=== PATIENT | female | born 1945 | race Caucasian/White ===

== ENCOUNTER 2018-08-31 15:32 | Observation (INO) | payer MEDICARE ==
[2018-08-31] MEDS ORDERED: Keppra 500 MG/5 ML*** 1,000 MG in D5w 100ML Mini Bag 100 ML 100 ML IV ONE (15:40)
[2018-08-31] MEDS ORDERED: Sodium Chloride 0.9% 1000 ML 1,000 ML IV SCH ×2 (15:45→18:45)
[2018-08-31] MEDS ORDERED: Zofran 4 MG/2 ML VIAL IV ONE (15:50)
[2018-08-31] MEDS ORDERED: Zofran 4 MG/2 ML VIAL ONE (16:00)
[2018-08-31] MEDS ORDERED: Sodium Chloride 0.9% 1000 ML 1,000 ML ONE (16:00)
[2018-08-31] MEDS ORDERED: Keppra 500 MG/5 ML ONE (16:00)
[2018-08-31] MEDS ORDERED: Sodium Chloride 0.9% 100 ML IVPB 0 ML IV ONE (16:00)
[2018-08-31] MEDS ORDERED: D5w 100ML Mini Bag 100 ML 100 ML IV ONE (16:02)
[2018-08-31 16:03] LABS: Lactic Acid 3.7 (0.4-2.0)
--- NOTE | 2018-08-31 16:04 | ERPHSYRPT ---
- History of Present Illness Time Seen by Provider: 08/31/18 15:45 Source: EMS Physician History: PATIENT WITH A HISTORY OF CVA X 4, FOUND BY NEIGHBOR LYING ON FLOOR ACTIVELY SEIZURES, WITNESSED BY FIRST RESPONDERS, EMS FOUND PATIENT POSTICAL. DENIES HEADACHE, NECK PAIN, BLURRED VISION, FOCAL NUMBNESS, TINGLING OR WEAKNESS IN EXTREMITIES. Timing/Duration: today Severity: mild Character of Deficits: none Deficits: no difficulties Baseline/Normal Cognition: alert oriented x 3 Current Cognition: alert oriented x 3 Baseline Gait: walks w/o assistance Associated Symptoms: other (INITIALLY POSTICAL PER EMS) Allergies/Adverse Reactions: No Known Drug Allergies Allergy (Unverified 08/31/18 17:35) Home Medications: Atorvastatin Calcium [Lipitor] 20 mg PO DAILY 08/31/18 [History] Docusate Sodium 100 mg PO DAILY 08/31/18 [History] Fluoxetine HCl 20 mg [Prozac 20 MG] 20 mg PO DAILY 08/31/18 [History] Insuln Asp Prt/Insulin Aspart [Novolog Mix 70-30 Flexpen Syrn] 10 unit SQ AC [History] Levothyroxine Sodium [Synthroid] 125 mcg PO DAILY 08/31/18 [History] PANTOPRAZOLE 40 mg Tablet [Protonix 40MG Tablet] 40 mg PO BID 08/31/18 [ History] Rivaroxaban [Xarelto] 20 mg PO HS 08/31/18 [History] - Review of Systems Constitutional: No Fever, No Chills Eyes: No Symptoms Ears, Nose, & Throat: No Symptoms Respiratory: No Symptoms, No Cough, No Dyspnea Cardiac: No Symptoms, No Chest Pain, No Edema, No Syncope Abdominal/Gastrointestinal: No Symptoms, No Abdominal Pain, No Nausea, No Vomiting, No Diarrhea Genitourinary Symptoms: No Symptoms, No Dysuria Musculoskeletal: No Symptoms, No Back Pain, No Neck Pain Skin: No Symptoms, No Rash Neurological: Seizure, No Dizziness, No Focal Weakness, No Sensory Changes Psychological: No Symptoms Endocrine: No Symptoms All Other Systems: Reviewed and Negative - Nursing Vital Signs Nursing Vital Signs: Initial Vital Signs Temperature 98.2 F 08/31/18 15:33 Pulse Rate 62 08/31/18 15:33 Respiratory Rate 16 08/31/18 15:33 Blood Pressure 136/70 08/31/18 15:33 O2 Sat by Pulse Oximetry 95 08/31/18 15:33 Pain Scale Pain Intensity 0 - Physical Exam General Appearance: no apparent distress, alert, other (AND APPROPRIATE) Eye Exam: bilateral eye: normal inspection, PERRL, EOMI Neck Exam: normal inspection, other (RIGID CERVICAL COLLAR APPLIED UPON ARRIVAL ) Respiratory: normal breath sounds, accessory muscle use Cardiovascular: regular rate/rhythm, normal heart sounds Gastrointestinal: soft, normal bowel sounds Back Exam: normal inspection, normal range of motion Peripheral Pulses: carotid (R): 2+, carotid (L): 2+, femoral (R): 2+, femoral (L ): 2+, dorsalis-pedis (R): 2+, dorsalis-pedis (L): 2+ Mental Status: alert, oriented x 3 butcher chicken and fish Exam: normal hearing, normal speech, PERRL Coordination/Gait: normal finger to nose, normal cerebellar function Motor/Sensory: no motor deficit, no sensory deficit, negative Babinski's sign DTR: bicep (R): 2+, bicep (L): 2+, tricep (R): 2+, tricep (L): 2+, knee (R): 2+ , knee (L): 2+ Skin Exam: normal color SpO2 Interpretation: normal SpO2: 95 O2 Delivery: Room Air - Course EKG Interpreted by Me: RATE, Sinus Rhythm (RATE 63), NORMAL AXIS - Radiology Exams Chest X-ray Interpretation: Discussed w/ radiologist - CT Exams Head CT Interpretation: Discussed w/radiologist (NONACUTE SENILE BRAINE WITH OLD BILATERAL INFARCTS, NO ACUTE INTRACRANIAL ABNORMALITIES) Cervical Spine CT Interpretation: Discussed w/radiologist (MULTIPLE DEGENERATIVE CHANGES, NEGATIVE FRACTURE OR SUBLUXATION) Ordered Tests: Active Orders 24 hr Category Date Time Status Cervical Collar Application STAT Care 08/31/18 15:50 Active EKG-ER Only STAT Care 08/31/18 15:40 Active IV Insertion STAT Care 08/31/18 15:40 Active Oxygen-ED Only Nasal Cannula 2 lpm Care 08/31/18 15:40 Active CERVICAL SPINE WO CONTRAST [CT] Stat Exams 08/31/18 15:43 Completed CHEST 1 VIEW (PORTABLE) Stat Exams 08/31/18 15:49 Completed HEAD WITHOUT CONTRAST [CT] Stat Exams 08/31/18 15:43 Completed CBC W DIFF Stat Lab 08/31/18 15:49 Completed CK-Creatinine Phosphokinase Stat Lab 08/31/18 15:49 Completed CMP Stat Lab 08/31/18 15:49 Completed CULTURE,URINE Stat Lab 08/31/18 15:49 Received Lactic Acid Stat Lab 08/31/18 15:40 Completed Lactic Acid Stat Lab 08/31/18 18:03 Ordered Manual Differential NC Stat Lab 08/31/18 15:49 Completed PROTIME WITH INR Stat Lab 08/31/18 15:49 Completed TROPONIN Q3H Lab 08/31/18 15:49 Completed TROPONIN Q3H Lab 08/31/18 19:00 Ordered TROPONIN Q3H Lab 08/31/18 22:00 Ordered TROPONIN Q3H Lab 09/01/18 01:00 Ordered TROPONIN Q3H Lab 09/01/18 04:00 Ordered UA W/RFX UR CULTURE Stat Lab 08/31/18 15:49 Completed Urine Triage Profile Stat Lab 08/31/18 15:49 Completed Medication Summary Generic Name Dose Route Start Last Admin Trade Name Freq PRN Reason Stop Dose Admin Sodium Chloride 1,000 mls @ 200 mls/hr 08/31/18 15:45 08/31/18 16:19 Sodium Chloride 0.9% 1000 Ml IV 09/30/18 15:44 200 mls/hr .Q5H TRAVIS Administration Discontinued Medications Generic Name Dose Route Start Last Admin Trade Name Freq PRN Reason Stop Dose Admin Levetiracetam 1,000 mg/ 110 mls @ 400 mls/hr 08/31/18 15:40 08/31/18 16:18 Dextrose IV 08/31/18 15:56 400 mls/hr STAT ONE Administration Sodium Chloride Confirm 08/31/18 16:00 Sodium Chloride 0.9% 100 Ml Ivpb Administered 08/31/18 16:01 Dose 100 mls @ ud IV .STK-MED ONE Dextrose Confirm 08/31/18 16:02 D5w 100ml Mini Bag 100 Ml Administered 08/31/18 16:03 Dose 100 mls @ ud IV .STK-MED ONE Levetiracetam Confirm 08/31/18 16:00 Keppra 500 Mg/5 Ml Administered 08/31/18 16:01 Dose 1,000 mg .ROUTE .STK-MED ONE Ondansetron HCl 4 mg 08/31/18 15:50 08/31/18 16:15 Zofran 4 Mg/2 Ml Vial IV 08/31/18 15:51 4 mg STAT ONE Administration Ondansetron HCl Confirm 08/31/18 16:00 Zofran 4 Mg/2 Ml Vial Administered 08/31/18 16:01 Dose 4 mg .ROUTE .STK-MED ONE Lab/Rad Data: Laboratory Result Diagrams 08/31/18 15:49 08/31/18 15:49 Laboratory Results 08/31/18 08/31/18 08/31/18 Range/Units 15:49 15:49 15:49 WBC (4.0-10.5) K/mm3 RBC (4.1-5.4) M/mm3 Hgb (12.0-16.0) gm/dl Hct (35-47) % MCV (78-100) fl MCH (26-32) pg MCHC (32-36) g/dl RDW (11.5-14.0) % Plt Count (150-450) K/mm3 MPV (6-9.5) fl Absolute Neutrophils (1.4-6.9) Segmented Neutrophils (36.0-66.0) % Band Neutrophils (0.0-2.0) % Lymphocytes (Manual) (24-44) % Monocytes (Manual) (0.0-12.0) % Eosinophils (Manual) (0.00-3.0) % Basophils (Manual) (0.0-1.0) % Anisocytosis PT (9.95-12.35) SECONDS INR (0.8-3.0) Sodium (137-145) mmol/L Potassium (3.5-5.1) mmol/L Chloride (98-107) mmol/L Carbon Dioxide (22-30) mmol/L Anion Gap (5-15) MEQ/L BUN (7-17) mg/dL Creatinine (0.52-1.04) mg/dL Estimated GFR ML/MIN Glucose (74-106) mg/dL Lactic Acid (0.4-2.0) Calcium (8.4-10.2) mg/dL Total Bilirubin (0.2-1.3) mg/dL AST (14-36) U/L ALT (0-35) U/L Alkaline Phosphatase (38-126) U/L Creatine Kinase (30-135) U/L Troponin I < 0.012 (0.000-0.034) ng/mL Serum Total Protein (6.3-8.2) g/dL Albumin (3.5-5.0) g/dL Urine Color YELLOW (YELLOW) Urine Appearance CLEAR (CLEAR) Urine pH 5.0 (5-6) Ur Specific [place] 1.009 (1.005-1.025) Urine Protein NEGATIVE (Negative) Urine Ketones NEGATIVE (NEGATIVE) Urine Blood SMALL (0-5) Teddy/ul Urine Nitrite NEGATIVE (NEGATIVE) Urine Bilirubin NEGATIVE (NEGATIVE) Urine Urobilinogen NEGATIVE (0-1) mg/dL Ur Leukocyte Esterase NEGATIVE (NEGATIVE) Urine WBC (Auto) 3-5 (0-5) /HPF Urine RBC (Auto) NONE (0-2) /HPF U Epithel Cells (Auto) RARE (FEW) /HPF Urine Bacteria (Auto) RARE (NEGATIVE) /HPF Urine Culture Reflexed YES (NO) Urine Glucose 150 (NEGATIVE) mg/dL Urine Opiates Level NEGATIVE (NEGATIVE) Ur Methadone NEGATIVE (NEGATIVE) Urine Barbiturates NEGATIVE (NEGATIVE) Ur Phencyclidine (PCP) NEGATIVE (NEGATIVE) Urine Amphetamine NEGATIVE (NEGATIVE) U Benzodiazepine Level NEGATIVE (NEGATIVE) Urine Cocaine NEGATIVE (NEGATIVE) Urine Marijuana (THC) NEGATIVE (NEGATIVE) 08/31/18 08/31/18 08/31/18 Range/Units 15:49 15:49 15:49 WBC (4.0-10.5) K/mm3 RBC (4.1-5.4) M/mm3 Hgb (12.0-16.0) gm/dl Hct (35-47) % MCV (78-100) fl MCH (26-32) pg MCHC (32-36) g/dl RDW (11.5-14.0) % Plt Count (150-450) K/mm3 MPV (6-9.5) fl Absolute Neutrophils (1.4-6.9) Segmented Neutrophils (36.0-66.0) % Band Neutrophils (0.0-2.0) % Lymphocytes (Manual) (24-44) % Monocytes (Manual) (0.0-12.0) % Eosinophils (Manual) (0.00-3.0) % Basophils (Manual) (0.0-1.0) % Anisocytosis PT 19.7 H (9.95-12.35) SECONDS INR 1.72 (0.8-3.0) Sodium 142 (137-145) mmol/L Potassium 4.4 (3.5-5.1) mmol/L Chloride 102 (98-107) mmol/L Carbon Dioxide 28 (22-30) mmol/L Anion Gap 16.6 H (5-15) MEQ/L BUN 16 (7-17) mg/dL Creatinine 1.01 (0.52-1.04) mg/dL Estimated GFR 57.4 ML/MIN Glucose 241 H (74-106) mg/dL Lactic Acid (0.4-2.0) Calcium 9.5 (8.4-10.2) mg/dL Total Bilirubin 0.80 (0.2-1.3) mg/dL AST 18 (14-36) U/L ALT 9 (0-35) U/L Alkaline Phosphatase 91 (38-126) U/L Creatine Kinase 55 (30-135) U/L Troponin I (0.000-0.034) ng/mL Serum Total Protein 7.2 (6.3-8.2) g/dL Albumin 4.0 (3.5-5.0) g/dL Urine Color (YELLOW) Urine Appearance (CLEAR) Urine pH (5-6) Ur Specific [place] (1.005-1.025) Urine Protein (Negative) Urine Ketones (NEGATIVE) Urine Blood (0-5) Teddy/ul Urine Nitrite (NEGATIVE) Urine Bilirubin (NEGATIVE) Urine Urobilinogen (0-1) mg/dL Ur Leukocyte Esterase (NEGATIVE) Urine WBC (Auto) (0-5) /HPF Urine RBC (Auto) (0-2) /HPF U Epithel Cells (Auto) (FEW) /HPF Urine Bacteria (Auto) (NEGATIVE) /HPF Urine Culture Reflexed (NO) Urine Glucose (NEGATIVE) mg/dL Urine Opiates Level (NEGATIVE) Ur Methadone (NEGATIVE) Urine Barbiturates (NEGATIVE) Ur Phencyclidine (PCP) (NEGATIVE) Urine Amphetamine (NEGATIVE) U Benzodiazepine Level (NEGATIVE) Urine Cocaine (NEGATIVE) Urine Marijuana (THC) (NEGATIVE) 08/31/18 08/31/18 Range/Units 15:49 15:40 WBC 4.1 (4.0-10.5) K/mm3 RBC 4.55 (4.1-5.4) M/mm3 Hgb 13.2 (12.0-16.0) gm/dl Hct 39.9 (35-47) % MCV 87.7 (78-100) fl MCH 29.0 (26-32) pg MCHC 33.1 (32-36) g/dl RDW 14.9 H (11.5-14.0) % Plt Count 190 (150-450) K/mm3 MPV 10.2 H (6-9.5) fl Absolute Neutrophils 3.4 (1.4-6.9) Segmented Neutrophils 78 H (36.0-66.0) % Band Neutrophils 5 H (0.0-2.0) % Lymphocytes (Manual) 8 L (24-44) % Monocytes (Manual) 4 (0.0-12.0) % Eosinophils (Manual) 4 H (0.00-3.0) % Basophils (Manual) 1 (0.0-1.0) % Anisocytosis 1+ PT (9.95-12.35) SECONDS INR (0.8-3.0) Sodium (137-145) mmol/L Potassium (3.5-5.1) mmol/L Chloride (98-107) mmol/L Carbon Dioxide (22-30) mmol/L Anion Gap (5-15) MEQ/L BUN (7-17) mg/dL Creatinine (0.52-1.04) mg/dL Estimated GFR ML/MIN Glucose (74-106) mg/dL Lactic Acid 3.7 H (0.4-2.0) Calcium (8.4-10.2) mg/dL Total Bilirubin (0.2-1.3) mg/dL AST (14-36) U/L ALT (0-35) U/L Alkaline Phosphatase (38-126) U/L Creatine Kinase (30-135) U/L Troponin I (0.000-0.034) ng/mL Serum Total Protein (6.3-8.2) g/dL Albumin (3.5-5.0) g/dL Urine Color (YELLOW) Urine Appearance (CLEAR) Urine pH (5-6) Ur Specific [place] (1.005-1.025) Urine Protein (Negative) Urine Ketones (NEGATIVE) Urine Blood (0-5) Teddy/ul Urine Nitrite (NEGATIVE) Urine Bilirubin (NEGATIVE) Urine Urobilinogen (0-1) mg/dL Ur Leukocyte Esterase (NEGATIVE) Urine WBC (Auto) (0-5) /HPF Urine RBC (Auto) (0-2) /HPF U Epithel Cells (Auto) (FEW) /HPF Urine Bacteria (Auto) (NEGATIVE) /HPF Urine Culture Reflexed (NO) Urine Glucose (NEGATIVE) mg/dL Urine Opiates Level (NEGATIVE) Ur Methadone (NEGATIVE) Urine Barbiturates (NEGATIVE) Ur Phencyclidine (PCP) (NEGATIVE) Urine Amphetamine (NEGATIVE) U Benzodiazepine Level (NEGATIVE) Urine Cocaine (NEGATIVE) Urine Marijuana (THC) (NEGATIVE) - Progress Progress Note: 08/31/18 16:23 IV NORMAL SALINE 100ML/HR, KEPPRA 1000MG IVBP Discussed with : Other (DISCUSSED WITH DR MISTRY AT 1725 FOR OBSERVATION) - Departure Departure Disposition: Observation Clinical Impression: SEIZURE DISORDER Condition: Stable Critical Care Time: No Referrals: WENDY GARCIA [Primary Care Provider] -
--- NOTE | 2018-08-31 16:23 | XRAY ---
Indication: Seizure. Possible fall. Multiple contiguous axial images obtained through the cervical spine. Sagittal and coronal reformatted images obtained. Comparison: Cervical radiograph August 22, 2006. Age-related osteopenia. Nonunited posterior arch C1, normal variant. Axial images negative for acute fracture, suspicious bone lesions, or spinal canal stenosis. There remains minimal/mild multilevel degenerative endplate spurring again greatest at C5-C6 level. Also mild bilateral degenerative facet hypertrophy. Sagittal and coronal reformatted images again demonstrate cervical lordotic straightening, positional versus paraspinal spasm. Stable C5-C7 disc space narrowing. No acute compression fracture, subluxation, or jumped facet. Normal appearing craniocervical junction. Visualized noncontrasted soft tissues again demonstrates thyroidectomy. Lung apices unremarkable. Impression: 1. Stable osteopenia and multilevel degenerative changes. 2. Again negative acute fracture/subluxation. CTDI 54.99
--- NOTE | 2018-08-31 16:24 | XRAY ---
Indication: Seizure. Possible fall. Multiple contiguous axial images obtained through the head without contrast. Comparison: August 03, 2010. Again old left cerebellar infarct. New finding old right temporal lobe and smaller old right occipital lobe infarcts with adjacent gliosis. No acute hemorrhage, mass effect or hydrocephalus. Elsewhere age-appropriate global atrophy and mild perivascular degenerative microvascular ischemia bilaterally. Fourth ventricle is midline. Bony calvarium intact. Visualized paranasal sinuses and mastoid air cells are clear. Impression: Nonacute senile brain with old bilateral infarcts as detailed. No acute intracranial abnormalities. CTDI 50.62
--- NOTE | 2018-08-31 16:25 | XRAY ---
Indication: Cough. Seizure. Comparison: March 29, 2012. Portable apical lordotic chest remains clear again with incidental calcified granulomas bilaterally. Heart is not enlarged for AP portable technique. Bony thorax intact again with mild osteopenia and degenerative changes. Stable surgical clips base of neck. Impression: Stable nonacute chest with chronic features.
[2018-08-31 16:33] LABS: Hematocrit 39.9 % (35-47); Hemoglobin 13.2 gm/dl (12.0-16.0); Mean Cell Volume 87.7 fl (78-100); Mean Corpuscular Hgb Concent. 33.1 g/dl (32-36); Mean Platelet Volume 10.2 fl (6-9.5); Platelet Count 190 K/mm3 (150-450); Red Blood Count 4.55 M/mm3 (4.1-5.4); Red Cell Distribution Width 14.9 % (11.5-14.0); White Blood Count 4.1 K/mm3 (4.0-10.5)
[2018-08-31 16:34] LABS: INR 1.72 (0.8-3.0); PROTIME 19.7 SECONDS (9.95-12.35)
[2018-08-31 16:39] LABS: Appearance CLEAR (CLEAR); Bacteria RARE /HPF (NEGATIVE); Bilirubin NEGATIVE (NEGATIVE); Blood SMALL Ery/ul (0-5); Epithelial Cells RARE /HPF (FEW); Glucose 150 mg/dL (NEGATIVE); Ketones NEGATIVE (NEGATIVE); Leukocyte Esterase NEGATIVE (NEGATIVE); Nitrite NEGATIVE (NEGATIVE); Protein,Urine Dip NEGATIVE (Negative); Specific Gravity 1.009 (1.005-1.025); Urobilinogen NEGATIVE mg/dL (0-1)
[2018-08-31 16:42] LABS: ANION GAP 16.6 MEQ/L (5-15); BILIRUBIN,TOTAL 0.8 mg/dL (0.2-1.3); Calcium 9.5 mg/dL (8.4-10.2); Creatinine 1 1.01 mg/dL (0.52-1.04); Potassium 4.4 mmol/L (3.5-5.1); Total Protein 7.2 g/dL (6.3-8.2)
[2018-08-31 16:53] LABS: Amphetamine,Urine NEGATIVE (NEGATIVE); Barbiturate,Urine NEGATIVE (NEGATIVE); Benzodiazepine,Urine NEGATIVE (NEGATIVE); Cocaine,Urine NEGATIVE (NEGATIVE); Methadone,Urine NEGATIVE (NEGATIVE); Opiate,Urine NEGATIVE (NEGATIVE); PCP,Urine NEGATIVE (NEGATIVE); THC,Urine NEGATIVE (NEGATIVE)
[2018-08-31 17:11] LABS: ABSOLUTE NEUTROPHILS 3.4 (1.4-6.9); BAND 5 % (0.0-2.0); Basophil 1 % (0.0-1.0); Eosinophil 4 % (0.00-3.0); Lymphocytes 8 % (24-44); Monocyte 4 % (0.0-12.0); Neutrophils 78 % (36.0-66.0); Total Cells Counted 100
[2018-08-31 17:13] LABS: ANISOCYTOSIS 1+
[2018-08-31] MEDS ORDERED: Zofran 4 MG/2 ML VIAL IV PRN (18:35)
[2018-08-31] MEDS ORDERED: TYLENOL 325 MG PO PRN (18:35)
[2018-08-31] MEDS ORDERED: Colace 100 MG PO PRN (21:16)
[2018-08-31] MEDS: Protonix 40MG Tablet PO SCH (21:29)
[2018-08-31] MEDS: XARELTO 10 MG TABLET PO SCH (21:29)
[2018-08-31] MEDS: KEPPRA 500 MG PO SCH ×2 (21:32→21:41)
[2018-09-01 04:59] LABS: ALBUMIN 3.4 g/dL (3.5-5.0); ALKALINE PHOSPHATASE 75 U/L (38-126); ANION GAP 12.3 MEQ/L (5-15); BLOOD UREA NITROGEN 16 mg/dL (7-17); CHLORIDE 105 mmol/L (98-107); Calcium 8.8 mg/dL (8.4-10.2); Carbon Dioxide 28 mmol/L (22-30); Creatinine 1 0.95 mg/dL (0.52-1.04); Glucose 155 mg/dL (74-106); SGOT/AST 19 U/L (14-36); SGPT/ALT 9 U/L (0-35); SODIUM 141 mmol/L (137-145); Total Protein 6.4 g/dL (6.3-8.2)
[2018-09-01 05:58] LABS: Hematocrit 36.3 % (35-47); Hemoglobin 11.9 gm/dl (12.0-16.0); Mean Cell Volume 88.1 fl (78-100); Mean Corpuscular Hgb Concent. 32.8 g/dl (32-36); Mean Platelet Volume 10.3 fl (6-9.5); Platelet Count 208 K/mm3 (150-450); Red Blood Count 4.12 M/mm3 (4.1-5.4); Red Cell Distribution Width 14.9 % (11.5-14.0); White Blood Count 5.1 K/mm3 (4.0-10.5)
[2018-09-01 06:00] LABS: Mean Corpuscular Hemoglobin 28.8 pg (26-32)
[2018-09-01] MEDS: KEPPRA 500 MG PO SCH ×2 (09:15→22:46)
[2018-09-01] MEDS: ZOCOR 20MG PO SCH (09:15)
[2018-09-01] MEDS: Protonix 40MG Tablet PO SCH ×2 (09:15→22:46)
[2018-09-01] MEDS: Prozac 20 MG PO SCH (09:15)
[2018-09-01] MEDS: Novolin 70/30 SQ SCH ×3 (09:42→17:02)
[2018-09-01] MEDS ORDERED: PROTONIX 40 MG IV IV SCH (10:00)
[2018-09-01] MEDS ORDERED: XARELTO 10 MG TABLET PO SCH (10:00)
[2018-09-01] MEDS ORDERED: SYNTHROID 125 MCG PO SCH (10:00)
[2018-09-01] MEDS ORDERED: NON-FORMULARY ITEM (Atorvastatin Calcium [Lipitor] 20 MG) PO SCH (10:00)
[2018-09-01] MEDS ORDERED: SYNTHROID 150 MCG PO ONE (13:30)
--- NOTE | 2018-09-01 21:39 | PCM.HP ---
History of Present Illness - Chief Complaint Chief Complaint: SEIZURE DISORDER History of Present Illness: is a 73 year old female who was admitted through the ER for Observation. She states she was getting a bowl of cereal and her "tic started" and she dropped it on the floor.She does not remember much after that but her friend came to see her and told patient was on the floor with tonic clonic movements and she called the ambulance. EMT state patient was postictal ,She was evaluated in the ER ,CT Head was Negative except for senile changes. C- spine xrays negative. - Review of Systems Constitutional: No Fever, No Chills Eyes: No Symptoms Ears, Nose, & Throat: No Symptoms Respiratory: No Cough, No Short Of Breath Cardiac: No Chest Pain, No Edema, No Syncope Abdominal/Gastrointestinal: No Abdominal Pain, No Nausea, No Vomiting, No Diarrhea Genitourinary Symptoms: No Dysuria Musculoskeletal: No Back Pain, No Neck Pain Skin: No Rash Neurological: Tics, Other (Hx CVA x 4. States she lives alone in an apt and long time friend helps her.) Psychological: No Symptoms Endocrine: Goiter (Thyroid surgegly removed and takes Levothyroxine 125mcg daily on empty stomach) Medications & Allergies Home Medications: Home Medication List Atorvastatin Calcium [Lipitor] 20 mg PO DAILY 08/31/18 [History Confirmed ] Docusate Sodium 100 mg PO DAILY 08/31/18 [History Confirmed 08/31/18] Fluoxetine HCl 20 mg [Prozac 20 MG] 20 mg PO DAILY 08/31/18 [History Confirmed 08/31/18] Insuln Asp Prt/Insulin Aspart [Novolog Mix 70-30 Flexpen Syrn] 10 unit SQ AC [History Confirmed 08/31/18] Levothyroxine Sodium [Synthroid] 125 mcg PO DAILY 08/31/18 [History Confirmed ] PANTOPRAZOLE 40 mg Tablet [Protonix 40MG Tablet] 40 mg PO BID 08/31/18 [ History Confirmed 08/31/18] Rivaroxaban [Xarelto] 20 mg PO HS 08/31/18 [History Confirmed 08/31/18] Allergies/Adverse Reactions: Allergies Allergy/AdvReac Type Severity Reaction Status Date / Time No Known Drug Allergies Allergy Verified 08/31/18 19:51 - Past Medical History Past Medical History: Yes Neurological History: Seizures, Stroke ENT History: No Pertinent History Cardiac History: High Cholesterol Respiratory History: No Pertinent History Endocrine Medical History: Diabetes Type II, Hypothyroidism Musculoskelatal History: No Pertinent History GI Medical History: GERD History: No Pertinent History Pyscho-Social History: Depression Reproductive Disorders: Fibroids - Female History Are you now?: No - Past Surgical History Past Surgical History: Yes Neuro Surgical History: No Pertinent History Cardiac History: No Pertinent History Respiratory Surgery: No Pertinent History GI Surgical History: Appendectomy Genitourinary Surgical Hx: No Pertinent History Musculskeletal Surgical Hx: Orthopedic Surgery Female Surgical History: No Pertinent History, Other Other Surgical History: CARPAL TUNNEL, CYST REMOVAL FROM BEHIND HER HEART, THYROIDECTOMY, CYST REMOVED FROM RIGHT BREAST - Social History Smoking Status: Never smoker Exposure to second hand smoke: Yes Alcohol: None Drug Use: none - Physical Exam Vital Signs: Vital Signs - 24 hr Temp Pulse Resp BP Pulse Ox 09/01/18 20:00 98.0 F 51 L 16 101/51 96 09/01/18 19:09 96 09/01/18 16:00 98.2 F 49 L 18 113/57 98 09/01/18 12:00 98.1 F 57 L 18 99/51 97 09/01/18 08:29 93 L 09/01/18 07:27 98.2 F 49 L 18 109/55 96 09/01/18 04:00 98.2 F 54 L 18 96/51 95 08/31/18 23:46 97.8 F 48 L 16 104/51 96 General Appearance: no apparent distress Neurologic Exam: alert, oriented x 3, cooperative, other (no gross motor or sensory defacits) Eye Exam: PERRL/EOMI Respiratory Exam: normal breath sounds Cardiovascular Exam: regular rate/rhythm Gastrointestinal/Abdomen Exam: soft, normal bowel sounds (nontender) Pelvic Exam: not done Rectal Exam: not done Back Exam: other (no point tenderness no CVA tenderness) Extremity Exam: other (normal strength and tone for age,Ambulates with walker postures foreward bent) Results - Labs Lab/Micro Results: Accuchecks Date 09/01/18 Date 09/01/18 Date 09/01/18 Date 08/31/18 Time 16:30 Time 11:30 Time 07:30 Accucheck Value: 240 Accucheck Value: 198 Accucheck Value: 155 Accucheck Value: 253 Lab Results-Last 24 Hours 08/31/18 08/31/18 09/01/18 Range/Units 20:30 22:10 01:10 WBC (4.0-10.5) K/mm3 RBC (4.1-5.4) M/mm3 Hgb (12.0-16.0) gm/dl Hct (35-47) % MCV (78-100) fl MCH (26-32) pg MCHC (32-36) g/dl RDW (11.5-14.0) % Plt Count (150-450) K/mm3 MPV (6-9.5) fl Sodium (137-145) mmol/L Potassium (3.5-5.1) mmol/L Chloride (98-107) mmol/L Carbon Dioxide (22-30) mmol/L Anion Gap (5-15) MEQ/L BUN (7-17) mg/dL Creatinine (0.52-1.04) mg/dL Estimated GFR ML/MIN Glucose (74-106) mg/dL Calcium (8.4-10.2) mg/dL Total Bilirubin (0.2-1.3) mg/dL AST (14-36) U/L ALT (0-35) U/L Alkaline Phosphatase (38-126) U/L Troponin I 0.046 H* 0.038 H* (0.000-0.034) ng/mL Serum Total Protein (6.3-8.2) g/dL Albumin (3.5-5.0) g/dL TSH 3rd Generation 9.650 H (0.47-4.68) mIU/L 09/01/18 09/01/18 09/01/18 Range/Units 04:22 04:22 04:22 WBC 5.1 (4.0-10.5) K/mm3 RBC 4.12 (4.1-5.4) M/mm3 Hgb 11.9 L (12.0-16.0) gm/dl Hct 36.3 (35-47) % MCV 88.1 (78-100) fl MCH 28.8 (26-32) pg MCHC 32.8 (32-36) g/dl RDW 14.9 H (11.5-14.0) % Plt Count 208 (150-450) K/mm3 MPV 10.3 H (6-9.5) fl Sodium 141 (137-145) mmol/L Potassium 4.0 (3.5-5.1) mmol/L Chloride 105 (98-107) mmol/L Carbon Dioxide 28 (22-30) mmol/L Anion Gap 12.3 (5-15) MEQ/L BUN 16 (7-17) mg/dL Creatinine 0.95 (0.52-1.04) mg/dL Estimated GFR > 60.0 ML/MIN Glucose 155 H (74-106) mg/dL Calcium 8.8 (8.4-10.2) mg/dL Total Bilirubin 0.70 (0.2-1.3) mg/dL AST 19 (14-36) U/L ALT 9 (0-35) U/L Alkaline Phosphatase 75 (38-126) U/L Troponin I 0.030 (0.000-0.034) ng/mL Serum Total Protein 6.4 (6.3-8.2) g/dL Albumin 3.4 L (3.5-5.0) g/dL TSH 3rd Generation (0.47-4.68) mIU/L Microbiology 08/31/18 15:49 Urine Culture - Preliminary Urine, Catheterized <10K NORMAL SKIN GARRY PROBABLE SKIN CONTAMINANT Accuchecks Date 09/01/18 Date 09/01/18 Date 09/01/18 Date 08/31/18 Time 16:30 Time 11:30 Time 07:30 Accucheck Value: 240 Accucheck Value: 198 Accucheck Value: 155 Accucheck Value: 253 - Radiology Impressions Radiology Exams & Impressions: Radiology Procedures Category Date Time Status CERVICAL SPINE WO CONTRAST [CT] Stat Exams 08/31/18 15:43 Completed CHEST 1 VIEW (PORTABLE) Stat Exams 08/31/18 15:49 Completed HEAD WITHOUT CONTRAST [CT] Stat Exams 08/31/18 15:43 Completed - Other Procedures and Tests Respiratory Therapy 09/03/18 13:12 EEG 41-60 Minutes (Normal) ONCE Assessment/Plan (1) Elevated troponin Current Visit: Yes Status: Acute Assessment & Plan: asymptomatic,resolved Code(s): R74.8 - ABNORMAL LEVELS OF OTHER SERUM ENZYMES (2) Hypothyroid Current Visit: Yes Status: Acute Qualifiers: Hypothyroidism type: postoperative Qualified Code(s): E89.0 - Postprocedural hypothyroidism Code(s): E03.9 - HYPOTHYROIDISM, UNSPECIFIED (3) Hx of goiter Current Visit: Yes Status: Acute Code(s): Z86.39 - PERSONAL HISTORY OF ENDO , NUTRITIONAL AND METABOLIC DISEASE (4) Hx of goiter Current Visit: Yes Status: Acute Code(s): Z86.39 - PERSONAL HISTORY OF ENDO , NUTRITIONAL AND METABOLIC DISEASE
[2018-09-01] MEDS: XARELTO 10 MG TABLET PO SCH (22:47)
[2018-09-02] MEDS: SYNTHROID 150 MCG PO SCH (08:18)
[2018-09-02] MEDS: ZOCOR 20MG PO SCH (08:18)
[2018-09-02] MEDS: KEPPRA 500 MG PO SCH ×2 (08:19→21:36)
[2018-09-02] MEDS: Prozac 20 MG PO SCH (08:19)
[2018-09-02] MEDS: Protonix 40MG Tablet PO SCH ×2 (08:19→21:36)
[2018-09-02] MEDS: Novolin 70/30 SQ SCH ×3 (08:19→17:24)
[2018-09-02] MEDS: XARELTO 10 MG TABLET PO SCH (21:37)
[2018-09-02] MEDS: Sodium Chloride 0.9% 10 ML FLUSH Syringe IV SCH (22:00)
--- NOTE | 2018-09-02 22:55 | PCM.NOTE ---
Date and Time: 09/02/182248 Subjective Assessment: Patient says she is feeling better overall today but feels ""clumsy" on her feet. Is using a walker to go to the bathroom.Has a rollater at home. OBJECTIVE DATA Vital Signs: Vital Signs - 24 hr Temp Pulse Resp BP Pulse Ox 09/02/18 19:37 98.5 F 54 L 17 112/56 96 09/02/18 19:22 97 09/02/18 18:29 95 09/02/18 16:00 98.1 F 54 L 18 132/59 99 09/02/18 11:56 98.4 F 54 L 18 126/58 97 09/02/18 07:40 98.4 F 48 L 18 113/50 97 09/02/18 04:00 97.9 F 48 L 13 108/53 96 09/01/18 23:51 98.4 F 49 L 16 97/46 94 L Pain Assessment - Last Documented Pain Intensity 0 Pain Scale Used 0-10 Pain Scale,FLACC Intake and Output: Intake & Output 08/31/18 09/01/18 09/02/18 09/03/18 11:59 11:59 11:59 11:59 Intake Total 1275 2560 960 Output Total 1200 1550 700 Balance 75 1010 260 Weight 73.8 kg Lab Results: Accuchecks Date 09/02/18 Date 09/02/18 Date 09/02/18 Date 09/02/18 Time 21:30 Time 16:30 Time 11:30 Time 07:30 Accucheck Value: 128 Accucheck Value: 130 Accucheck Value: 181 Accucheck Value: 110 Multi-Disciplinary Progress Notes: Multi-Disciplinary Progress Notes 09/02/18 13:01 Case Management Note by Margaret Elias PATIENT LIVES AT [facility], CALLED [facility]ER[facility] AND GOT THE NUMBER FOR THE PERSON IN CHARGE OF THE [facility] [phone]. NO ANSWER, AND VOICE MAIL FULL. WILL NEED TO CALL TO SEE IF THE PATIENT ALREADY HAS HHC IN PLACE. THE PATIENT SEEMS TO THINK SO, ALTHOUGH SHE DOESN'T KNOW WHO. WILL CONTINUE TO MONITOR FOR ALL D/C NEEDS. Initialized on 09/02/18 13:01 - END OF NOTE Assessment/Plan (1) Elevated troponin Current Visit: Yes Status: Acute Code(s): R74.8 - ABNORMAL LEVELS OF OTHER SERUM ENZYMES (2) Hypothyroid Current Visit: Yes Status: Acute Qualifiers: Hypothyroidism type: postoperative Qualified Code(s): E89.0 - Postprocedural hypothyroidism Code(s): E03.9 - HYPOTHYROIDISM, UNSPECIFIED (3) Hx of goiter Current Visit: Yes Status: Acute Code(s): Z86.39 - PERSONAL HISTORY OF ENDO , NUTRITIONAL AND METABOLIC DISEASE (4) Hx of goiter Current Visit: Yes Status: Acute Code(s): Z86.39 - PERSONAL HISTORY OF ENDO , NUTRITIONAL AND METABOLIC DISEASE
[2018-09-03] MEDS: Sodium Chloride 0.9% 10 ML FLUSH Syringe IV SCH ×2 (06:47→15:05)
[2018-09-03] MEDS: Novolin 70/30 SQ SCH ×3 (08:21→16:55)
--- NOTE | 2018-09-03 08:47 | PCM.NOTE ---
Date and Time: 09/03/18840 Subjective Assessment: Patient reports hx of crying and hiccups and possible syncope 2 mo ago when she was at [facility] ER 2 months ago. She reports she remembered everything that happened before coming into the hospital. she reports she was trying to fix herself a bowl of cereal and was jerking and dropped two bowls. She reports her PCP knows about the "tics" (Dr. Whitney). She has a hx of PE and an IVC filter and on Xarelto. She denies CP and states her electronic masking system operator is Dr. Bullock. - Review of Systems Constitutional: No Symptoms Eyes: No Symptoms Ears, Nose, & Throat: No Symptoms Respiratory: No Symptoms Cardiac: No Symptoms Abdominal/Gastrointestinal: No Symptoms Genitourinary Symptoms: No Symptoms Musculoskeletal: No Symptoms Objective Exam General Appearance: no apparent distress, alert Neurologic Exam: alert, cooperative, other (strength 5/5 in all 4 ext) Skin Exam: normal color, warm, dry Respiratory Exam: normal breath sounds, lungs clear, No crackles/rales, No rhonchi, No wheezing Cardiovascular Exam: regular rate/rhythm, normal heart sounds, No murmur, No friction rub, No gallop Gastrointestinal/Abdomen Exam: soft, normal bowel sounds, No tenderness, No distention, No mass Extremity Exam: normal inspection, other (no c/c/e) OBJECTIVE DATA Vital Signs: Vital Signs - 24 hr Temp Pulse Resp BP Pulse Ox 09/03/18 07:32 98.1 F 52 L 18 95/62 96 09/03/18 06:59 97 09/03/18 04:00 97.9 F 58 L 16 133/60 98 09/02/18 23:12 98.5 F 57 L 19 126/60 97 09/02/18 19:37 98.5 F 54 L 17 112/56 96 09/02/18 19:22 97 09/02/18 18:29 95 09/02/18 16:00 98.1 F 54 L 18 132/59 99 09/02/18 11:56 98.4 F 54 L 18 126/58 97 Pain Assessment - Last Documented Pain Intensity 0 Pain Scale Used 0-10 Pain Scale,FLACC Intake and Output: Intake & Output 09/01/18 09/02/18 09/03/18 09/04/18 06:59 06:59 06:59 06:59 Intake Total 1155 2100 2140 Output Total 1200 1250 2500 800 Balance -45 850 360 -800 Weight 73.8 kg Lab Results: Accuchecks Date 09/02/18 Date 09/02/18 Date 09/02/18 Time 21:30 Time 16:30 Time 11:30 Accucheck Value: 117 Accucheck Value: 128 Accucheck Value: 130 Accucheck Value: 181 Multi-Disciplinary Progress Notes: Multi-Disciplinary Progress Notes 09/03/18 07:39 Case Management Note by Brandi Joseph Talked with HUGO JAFFE about cc coordination information given . Initialized on 09/03/18 07:39 - END OF NOTE 09/02/18 13:01 Case Management Note by Margaret Elias PATIENT LIVES AT [facility], CALLED JEROME OLMEDO AND GOT THE NUMBER FOR THE PERSON IN CHARGE OF THE A.L.XIOMY [phone]. NO ANSWER, AND VOICE MAIL FULL. WILL NEED TO CALL TO SEE IF THE PATIENT ALREADY HAS HHC IN PLACE. THE PATIENT SEEMS TO THINK SO, ALTHOUGH SHE DOESN'T KNOW WHO. WILL CONTINUE TO MONITOR FOR ALL D/C NEEDS. Initialized on 09/02/18 13:01 - END OF NOTE Assessment/Plan (1) Seizure Current Visit: Yes Status: Acute Assessment & Plan: Continue keppra and having EEG today. May discharge to home after EEG. Most likely will discharge on Keppra and have her follow up with her PCP. Code(s): R56.9 - UNSPECIFIED CONVULSIONS (2) Hypothyroid Current Visit: Yes Status: Acute Qualifiers: Hypothyroidism type: postoperative Qualified Code(s): E89.0 - Postprocedural hypothyroidism Assessment & Plan: Continue levothyroxine. Code(s): E03.9 - HYPOTHYROIDISM, UNSPECIFIED (3) History of pulmonary embolism Current Visit: Yes Status: Acute Assessment & Plan: Continue Xarelto. Code(s): Z86.711 - PERSONAL HISTORY OF PULMONARY EMBOLISM (4) Diabetes type 2, controlled Current Visit: Yes Status: Acute Qualifiers: Diabetes mellitus termite helper insulin use: with termite helper use Diabetes mellitus complication status: without complication Qualified Code(s): E11.9 - Type 2 diabetes mellitus without complications; Z79.4 - termite helper (current) use of insulin Code(s): E11.9 - TYPE 2 DIABETES MELLITUS WITHOUT COMPLICATIONS
[2018-09-03] MEDS: ZOCOR 20MG PO SCH (10:06)
[2018-09-03] MEDS: Protonix 40MG Tablet PO SCH (10:06)
[2018-09-03] MEDS: Prozac 20 MG PO SCH (10:06)
[2018-09-03] MEDS: SYNTHROID 150 MCG PO SCH (10:06)
[2018-09-03] MEDS: KEPPRA 500 MG PO SCH (10:06)
[2018-09-03 11:10] VITALS: O2SAT 98
[2018-09-03 16:10] VITALS: BP 121/56; PULSE 55
--- NOTE | 2018-09-03 17:02 | PCM.DCORD ---
- Discharge Discharge Date: 09/03/18 Disposition: Home, Self-Care Condition: Fair Prescriptions: New Levetiracetam [Keppra 500 mg ] 500 mg PO BID #28 tablet Levothyroxine Sodium 150 Mcg [Synthroid 150 Mcg] 150 mcg PO QAM #14 tablet Continue PANTOPRAZOLE 40 mg Tablet [Protonix 40MG Tablet] 40 mg PO BID Rivaroxaban [Xarelto] 20 mg PO HS Insuln Asp Prt/Insulin Aspart [Novolog Mix 70-30 Flexpen Syrn] 10 unit SQ AC Fluoxetine HCl 20 mg [Prozac 20 MG] 20 mg PO DAILY Docusate Sodium 100 mg PO DAILY Atorvastatin Calcium [Lipitor] 20 mg PO DAILY Discontinued Levothyroxine Sodium [Synthroid] 125 mcg PO DAILY Additional Instructions: Do not take baths, swim or climb any heights. You may take showers. Do not drive. Follow up with: WENDY GARCIA [Primary Care Provider] - 1 Week
--- NOTE | 2018-09-04 08:18 | DS ---
DISCHARGE DIAGNOSES: 1) SEIZURE. 2) HYPOTHYROIDISM. 3) HISTORY OF PULMONARY EMBOLISM. 4) DIABETES MELLITUS TYPE 2, CONTROLLED. DISCHARGE PHYSICAL EXAMINATION: VITALS: Temperature current 98.1F, temperature max 98.5F, heart rate 52, respiratory rate 18, blood pressure 95 to 133 over 56 to 62. Oxygen saturation 96 to 98% on room air. GENERAL: The patient is a pleasant talkative lady sitting up in bed in no acute distress. CVS: She has a regular rate and rhythm. No murmurs, gallops or rubs. CHEST: Clear to auscultation bilaterally. No crackles or wheezes. ABDOMEN: Soft, nontender, nondistended with normal bowel sounds. EXTREMITIES: No clubbing, cyanosis or edema. NEURO: She is alert, cooperative. Strength 5/5 in all four extremities, moving all four extremities. HOSPITAL COURSE: 1) SEIZURE. She was started on Keppra 500 mg p.o. b.i.d. which was continued during her hospital course. She had an EEG done on 09/03/2018 that was read as generally slow and showed a focus of slow activity in the left temporal region suggesting a lesion in this area. They recommended MRI. The patient declined MRI here at [facility] as she states she is claustrophobic. The patient has had no further seizure activity. The patient will be discharged on Keppra 500 mg p.o. b.i.d. given a script for enough for two weeks and to follow up with her primary care provider, Dr. Constantino, who may work on ordering MRI as an outpatient MRI and/or consultation with a neurologist. The patient was instructed not to take bath, swim or climb heights and not to drive. She was discharged in fair condition. 2) HYPOTHYROIDISM: Her dose of levothyroxine was increased to 150 mcg from 125 mcg due to a slightly elevated TSH. Her primary care doctor again will need to follow up on this. 3) HISTORY OF PULMONARY EMBOLISM. She was continued on her anticoagulation. 4) DIABETES MELLITUS TYPE 2, CONTROLLED. She was continued on her home dose of insulin. DISCHARGE MEDICATIONS: Please see the discharge order. FOLLOW UP: She is to follow up closely with her primary care provider, Dr. Cleve Constantino. DISPOSITION: The patient was discharged to home in fair condition.
== END 2018-09-03 18:30 | disposition home health service (06) ==
LOC: ED 15:32 → MED SURG 18:50
PROVIDERS: ADMIT Family Medicine; ATTEND Family Medicine
DX: R56.9 Unspecified convulsions (principal); E03.9 Hypothyroidism, unspecified; E11.9 Type 2 diabetes mellitus without complications; R74.8 Abnormal levels of other serum enzymes; E78.00 Pure hypercholesterolemia, unspecified; Z86.711 Personal history of pulmonary embolism; Z86.73 Personal history of transient ischemic attack (TIA), and cerebral infarction without residual deficits; Z79.899 Other long term (current) drug therapy; Z86.39 Personal history of other endocrine, nutritional and metabolic disease; Z79.01 Long term (current) use of anticoagulants
CPT/HCPCS: 36000; 36415; 70450; 71045; 72125; 80053; 80307; 81001; 82550; 82962; 83036; 83605; 84443; 84484; 85025; 85027; 85610; 87086; 93005; 93268; 94762; 95812; 96360; 96361; 96365; 96374; 99285; G0378; P9612; J1815; J1953; J2405; L0172; A9270-GY

== ENCOUNTER 2021-02-16 17:50 | Emergency (ER) | payer MEDICARE ==
[2021-02-16] MEDS ORDERED: VERSED 5 MG/5 ML ONE (17:54)
--- NOTE | 2021-02-16 17:56 | ERPHSYRPT ---
- History of Present Illness Time Seen by Provider: 02/16/21 17:56 Source: EMS Exam Limitations: clinical condition Physician History: This is a 76-year-old white female patient of Dr. Garcia who has a seizure disorder and is on Keppra. She took her medication as prescribed today. She has a history of insulin-dependent diabetes, gastroesophageal reflux disease, h ypothyroidism and multiple CVAs in the past. EMS was called because she was having multiple episodes of seizures. EMS arrived and during the transport, the EMS paramedics state that they were transporting her to [facility] in [facility] and in route she had a typical grand mal seizure followed by a brief run of spontaneously resolving ventricular tachycardia. EMS paramedics obtained medical control from [facility] and they were told to go to the nearest facility which was our facility. Upon arrival into our facility patient's heart rate was in the 60s and a normal sinus rhythm and systolic blood pressure was 119. She was maintaining her room air oxygenation of 95 to 96% with a respiratory rate of 16. There is no history of an acute fall or head trauma. Patient is on Xarelto. Timing/Duration: today Severity: moderate Character of Deficits: other (Moves all extremities in a haphazard fashion) Deficits: unable to stand Baseline/Normal Cognition: poor alertness Current Cognition: poor alertness Baseline Gait: walks w/o assistance Associated Symptoms: confusion Allergies/Adverse Reactions: No Known Drug Allergies Allergy (Verified 02/16/21 17:56) Home Medications: Atorvastatin Calcium [Lipitor] 20 mg PO DAILY 08/31/18 [History] Fluoxetine HCl 20 mg [Prozac 20 MG] 20 mg PO DAILY 08/31/18 [History] Rivaroxaban [Xarelto] 20 mg PO HS 08/31/18 [History] Levothyroxine Sodium 150 Mcg [Synthroid 150 Mcg] 175 mcg PO QAM 02/16/21 [History] Hx Tetanus, Diphtheria Vaccination/Date Given: No Hx Influenza Vaccination/Date Given: Yes Hx Pneumococcal Vaccination/Date Given: Yes Travel Risk - International Travel Have you traveled outside of the country in past 3 weeks: No - Coronavirus Screening Are you exhibiting any of the following symptoms?: No Close contact with a COVID-19 positive Pt in past 14-21 Days: No - Review of Systems Constitutional: No Symptoms Eyes: No Symptoms Ears, Nose, & Throat: No Symptoms Respiratory: No Symptoms Cardiac: No Symptoms Abdominal/Gastrointestinal: No Symptoms Genitourinary Symptoms: No Symptoms Musculoskeletal: No Symptoms Skin: No Symptoms Neurological: Seizure Psychological: No Symptoms Endocrine: No Symptoms Hematologic/Lymphatic: No Symptoms Immunological/Allergic: No Symptoms All Other Systems: Reviewed and Negative - Past Medical History Pertinent Past Medical History: Yes Neurological History: Seizures, Stroke ENT History: No Pertinent History Cardiac History: High Cholesterol Respiratory History: No Pertinent History Endocrine Medical History: Diabetes Type II, Hypothyroidism Musculoskeletal History: No Pertinent History GI Medical History: GERD History: No Pertinent History Psycho-Social History: Depression Female Reproductive Disorders: Fibroids - Past Surgical History Past Surgical History: Yes Neuro Surgical History: No Pertinent History Cardiac: No Pertinent History Respiratory: No Pertinent History Gastrointestinal: Appendectomy Genitourinary: No Pertinent History Musculoskeletal: Orthopedic Surgery Female Surgical History: No Pertinent History, Other Other Surgical History: CARPAL TUNNEL, CYST REMOVAL FROM BEHIND HER HEART, THYROIDECTOMY, CYST REMOVED FROM RIGHT BREAST - Social History Smoking Status: Never smoker Exposure to second hand smoke: Yes Drug Use: none Patient Lives Alone: Yes - Nursing Vital Signs Nursing Vital Signs: Initial Vital Signs Temperature 96.9 F 02/16/21 18:01 Pulse Rate 67 02/16/21 18:01 Respiratory Rate 18 02/16/21 18:01 Blood Pressure 153/71 02/16/21 18:01 O2 Sat by Pulse Oximetry 92 L 02/16/21 18:01 Pain Scale Pain Intensity 0 - Mingo Coma Scale Best Eye Response (Mingo): (2) open to pain Best Verbal Response ([place]ckley): (3) inappropriate words Best Motor Response (Mingo): (5) localizes to pain Mingo Total: 10 - Physical Exam General Appearance: lethargy, obese Eye Exam: bilateral eye: normal inspection, PERRL, EOMI Ears, Nose, Throat Exam: normal ENT inspection, moist mucous membranes Neck Exam: normal inspection, non-tender, supple, full range of motion Respiratory: normal breath sounds, lungs clear, airway intact, No chest tender ness, No respiratory distress Cardiovascular: regular rate/rhythm, normal heart sounds, normal peripheral pulses Gastrointestinal: soft, normal bowel sounds, No tenderness Pelvic Exam: not done Rectal Exam: not done Back Exam: normal inspection, normal range of motion, No CVA tenderness, No vertebral tenderness Extremity Exam: normal inspection, normal range of motion, pelvis stable Mental Status: lethargy surveillance specialist Exam: PERRL, tongue midline Skin Exam: normal color, warm, dry SpO2 Interpretation: borderline oxygenation O2 Delivery: Room Air - Course Nursing assessment & vital signs reviewed: Yes EKG Interpreted by Me: RATE (67), Sinus Rhythm, LAFB, Right Bundle Branch Block, NORMAL ST-T, Other (No acute ischemic changes. When compared to EKG of 2018 there are no significant changes.) Ordered Tests: Active Orders 24 hr Category Date Time Status Ethnographer STAT Care 02/16/21 17:57 Active EKG-ER Only STAT Care 02/16/21 17:56 Active Lake [Catheter-[place]] STAT Care 02/16/21 18:11 Active IV Insertion STAT Care 02/16/21 17:56 Active IV Insertion STAT Care 02/16/21 17:56 Active POCT Glucose Check STAT Care 02/16/21 17:56 Active Pulse Oximetry (ED) STAT Care 02/16/21 17:56 Active Pulse Oximetry (ED) STAT Care 02/16/21 17:56 Active HEAD WITHOUT CONTRAST [CT] Stat Exams 02/16/21 17:52 Taken CBC W DIFF Stat Lab 02/16/21 18:00 Completed CMP Stat Lab 02/16/21 18:00 Completed CULTURE,URINE Stat Lab 02/16/21 19:16 Received T4 (Thyroxine) Stat Lab 02/16/21 18:00 Completed TROPONIN Q3H Lab 02/16/21 18:00 Completed TROPONIN Q3H Lab 02/16/21 21:00 Ordered TROPONIN Q3H Lab 02/17/21 00:00 Ordered TROPONIN Q3H Lab 02/17/21 03:00 Ordered TROPONIN Q3H Lab 02/17/21 06:00 Ordered TSH [TSH, 3RD Generation] Stat Lab 02/16/21 18:00 Completed UA W/RFX UR CULTURE Stat Lab 02/16/21 19:16 Completed Urine Triage Profile Stat Lab 02/16/21 19:16 Completed Transfer Order Routine Transfer 02/16/21 Ordered Medication Summary Discontinued Medications Generic Name Dose Route Start Last Admin Trade Name Freq PRN Reason Stop Dose Admin Ceftriaxone Sodium/Dextrose 1 g in 50 mls @ 100 mls/hr 02/16/21 19:46 02/16/21 20:24 Rocephin 1 Gm-D5w 50 Ml Bag IV 02/16/21 20:15 Infused STAT STA Infusion Ceftriaxone Sodium/Dextrose Confirm 02/16/21 19:50 Rocephin 1 Gm-D5w 50 Ml Bag Administered 02/16/21 19:51 Dose 1 g in 50 mls @ ud IV .STK-MED ONE Lorazepam 2 mg 02/16/21 18:39 02/16/21 18:43 Lorazepam 2 Mg/1 Ml 2 Mg Vial IV 02/16/21 18:40 2 mg STAT ONE Administration Lorazepam Confirm 02/16/21 18:42 Lorazepam 2 Mg/1 Ml 2 Mg Vial Administered 02/16/21 18:43 Dose 2 mg .ROUTE .STK-MED ONE Midazolam HCl 2 mg 02/16/21 17:58 02/16/21 18:30 Midazolam Hcl 2 Mg/2 Ml Vial IV 02/16/21 17:59 2 mg 1XONLY ONE Administration Lab/Rad Data: Laboratory Result Diagrams 02/16/21 18:00 02/16/21 18:00 Laboratory Results 02/16/21 02/16/21 02/16/21 Range/Units 19:16 19:16 18:00 WBC (4.0-10.5) K/mm3 RBC (4.1-5.4) M/mm3 Hgb (12.0-16.0) gm/dl Hct (35-47) % MCV (78-100) fl MCH (26-32) pg MCHC (32-36) g/dl RDW (11.5-14.0) % Plt Count (150-450) K/mm3 MPV (7.5-11.0) fl Gran % (36.0-66.0) % Eos # (Auto) (0-0.5) Absolute Lymphs (auto) (1.0-4.6) Absolute Monos (auto) (0.0-1.3) Lymphocytes % (24.0-44.0) % Monocytes % (0.0-12.0) % Eosinophils % (0.00-5.0) % Basophils % (0.0-0.4) % Absolute Granulocytes (1.4-6.9) Basophils # (0-0.4) Sodium (137-145) mmol/L Potassium (3.5-5.1) mmol/L Chloride (98-107) mmol/L Carbon Dioxide (22-30) mmol/L Anion Gap (5-15) MEQ/L BUN (7-17) mg/dL Creatinine (0.52-1.04) mg/dL Estimated GFR ML/MIN Glucose (74-106) mg/dL Calcium (8.4-10.2) mg/dL Total Bilirubin (0.2-1.3) mg/dL AST (14-36) U/L ALT (0-35) U/L Alkaline Phosphatase (38-126) U/L Troponin I (0.000-0.034) ng/mL Serum Total Protein (6.3-8.2) g/dL Albumin (3.5-5.0) g/dL Thyroxine (T4) 18.5 H (5.53-10.96) ug/dL TSH 3rd Generation 1.520 (0.47-4.68) mIU/L Urine Color EZRA (YELLOW) Urine Appearance CLOUDY (CLEAR) Urine pH 5.0 (5-6) Ur Specific Luana 1.011 (1.005-1.025) Urine Protein 30 (Negative) Urine Ketones NEGATIVE (NEGATIVE) Urine Blood SMALL (0-5) Teddy/ul Urine Nitrite POSITIVE (NEGATIVE) Urine Bilirubin NEGATIVE (NEGATIVE) Urine Urobilinogen NEGATIVE (0-1) mg/dL Ur Leukocyte Esterase MODERATE (NEGATIVE) Urine WBC (Auto) 51-100 (0-5) /HPF Urine RBC (Auto) 3-5 (0-2) /HPF U Hyaline Cast (Auto) 0-2 (0-2) /LPF U Epithel Cells (Auto) NONE (FEW) /HPF Urine Bacteria (Auto) PACKED (NEGATIVE) /HPF Urine Mucus (Auto) SLIGHT (NEGATIVE) /HPF Urine Culture Reflexed YES (NO) Urine Glucose >=500 (NEGATIVE) mg/dL Urine Opiates Level NEGATIVE (NEGATIVE) Ur Methadone NEGATIVE (NEGATIVE) Urine Barbiturates NEGATIVE (NEGATIVE) Ur Phencyclidine (PCP) NEGATIVE (NEGATIVE) Urine Amphetamine NEGATIVE (NEGATIVE) U Benzodiazepine Level NEGATIVE (NEGATIVE) Urine Cocaine NEGATIVE (NEGATIVE) Urine Marijuana (THC) NEGATIVE (NEGATIVE) 02/16/21 02/16/21 02/16/21 Range/Units 18:00 18:00 18:00 WBC 5.7 (4.0-10.5) K/mm3 RBC 4.50 (4.1-5.4) M/mm3 Hgb 13.1 (12.0-16.0) gm/dl Hct 41.2 (35-47) % MCV 91.6 (78-100) fl MCH 29.1 (26-32) pg MCHC 31.8 L (32-36) g/dl RDW 13.8 (11.5-14.0) % Plt Count 234 (150-450) K/mm3 MPV 10.6 (7.5-11.0) fl Gran % 56.6 (36.0-66.0) % Eos # (Auto) 0.21 (0-0.5) Absolute Lymphs (auto) 1.79 (1.0-4.6) Absolute Monos (auto) 0.43 (0.0-1.3) Lymphocytes % 31.6 (24.0-44.0) % Monocytes % 7.6 (0.0-12.0) % Eosinophils % 3.7 (0.00-5.0) % Basophils % 0.5 (0.0-0.4) % Absolute Granulocytes 3.20 (1.4-6.9) Basophils # 0.03 (0-0.4) Sodium 141 (137-145) mmol/L Potassium 4.7 (3.5-5.1) mmol/L Chloride 101 (98-107) mmol/L Carbon Dioxide 23 (22-30) mmol/L Anion Gap 22.2 H (5-15) MEQ/L BUN 19 H (7-17) mg/dL Creatinine 1.00 (0.52-1.04) mg/dL Estimated GFR 57.6 ML/MIN Glucose 308 H (74-106) mg/dL Calcium 9.5 (8.4-10.2) mg/dL Total Bilirubin 1.30 (0.2-1.3) mg/dL AST 22 (14-36) U/L ALT 13 (0-35) U/L Alkaline Phosphatase 116 (38-126) U/L Troponin I < 0.012 (0.000-0.034) ng/mL Serum Total Protein 7.3 (6.3-8.2) g/dL Albumin 4.3 (3.5-5.0) g/dL Thyroxine (T4) (5.53-10.96) ug/dL TSH 3rd Generation (0.47-4.68) mIU/L Urine Color (YELLOW) Urine Appearance (CLEAR) Urine pH (5-6) Ur Specific Luana (1.005-1.025) Urine Protein (Negative) Urine Ketones (NEGATIVE) Urine Blood (0-5) Teddy/ul Urine Nitrite (NEGATIVE) Urine Bilirubin (NEGATIVE) Urine Urobilinogen (0-1) mg/dL Ur Leukocyte Esterase (NEGATIVE) Urine WBC (Auto) (0-5) /HPF Urine RBC (Auto) (0-2) /HPF U Hyaline Cast (Auto) (0-2) /LPF U Epithel Cells (Auto) (FEW) /HPF Urine Bacteria (Auto) (NEGATIVE) /HPF Urine Mucus (Auto) (NEGATIVE) /HPF Urine Culture Reflexed (NO) Urine Glucose (NEGATIVE) mg/dL Urine Opiates Level (NEGATIVE) Ur Methadone (NEGATIVE) Urine Barbiturates (NEGATIVE) Ur Phencyclidine (PCP) (NEGATIVE) Urine Amphetamine (NEGATIVE) U Benzodiazepine Level (NEGATIVE) Urine Cocaine (NEGATIVE) Urine Marijuana (THC) (NEGATIVE) - Progress Progress: improved Progress Note: 02/16/21 19:05 CAT scan of the head without contrast compared to the CAT scan of the head on 08/31/2018 there is interval worsening of global atrophy and moderate degenerative microischemia. Again old infarcts in the left cerebellum and right temporal lobe and right internal capsule. 2 new foci old lacunar infarcts left basal ganglia. 02/16/21 20:48 Medical decision making: This patient, I believe, has a moderately severe u rinary tract infection which has precipitated a breakthrough seizure. I do not believe the patient actually had run of V. tach. There is no EKG strip to confirm this. If it was in fact present it was a very brief run. She has not had another seizure or any unusual cardiac arrhythmias while here in the emergency room. She is still lethargic but becoming more arousable. I think this altered mental status is secondary to a moderately severe urinary tract infection in an elderly patient. I spoke with Dr. berry who is on-call for unassigned patients. He accepts the patient for placement into the telemetry unit. We spoke with the patient's daughter and she is fine with admitting the patient here. We will place her on intravenous Keppra with her head of bed up, intravenous fluids, repeat labs in the morning and provide her with Ativan for breakthrough seizures if present. Patient will also be placed on seizure precautions. Discussed with : Roxi - Departure Departure Disposition: In-patient Admission Clinical Impression: Altered mental status, Breakthrough seizure, UTI (urinary tract infection) Condition: Fair Critical Care Time: Yes Critical Care Time(excluding separately billable procedures): Critical 30-74 mins (35 minutes) Referrals: WENDY GARCIA [Primary Care Provider] - Follow up/PCP as directed
[2021-02-16] MEDS ORDERED: Versed 2 MG/2 ML Injection IV ONE (17:58)
[2021-02-16 18:19] LABS: BASOPHIL % 0.5 % (0.0-0.4); Basophil (Absolute #) 0.03 (0-0.4); Eosinophil % 3.7 % (0.00-5.0); Eosinophil (Absolute #) 0.21 (0-0.5); Hematocrit 41.2 % (35-47); Hemoglobin 13.1 gm/dl (12.0-16.0); Lymphocyte (Absolute #) 1.79 (1.0-4.6); Lymphocytes % 31.6 % (24.0-44.0); Mean Cell Volume 91.6 fl (78-100); Mean Corpuscular Hemoglobin 29.1 pg (26-32); Mean Corpuscular Hgb Concent. 31.8 g/dl (32-36); Mean Platelet Volume 10.6 fl (7.5-11.0); Monocyte (Absolute #) 0.43 (0.0-1.3); Monocytes % 7.6 % (0.0-12.0); Neutrophil % 56.6 % (36.0-66.0); Platelet Count 234 K/mm3 (150-450); Red Cell Distribution Width 13.8 % (11.5-14.0); White Blood Count 5.7 K/mm3 (4.0-10.5)
[2021-02-16 18:27] LABS: ALBUMIN 4.3 g/dL (3.5-5.0); ANION GAP 22.2 MEQ/L (5-15); BILIRUBIN,TOTAL 1.3 mg/dL (0.2-1.3); Calcium 9.5 mg/dL (8.4-10.2); EST GLOMERULAR FILTRATION RATE 57.6 ML/MIN; Potassium 4.7 mmol/L (3.5-5.1); Total Protein 7.3 g/dL (6.3-8.2)
[2021-02-16] MEDS ORDERED: Ativan 2 MG/1 ML VIAL IV ONE (18:39)
[2021-02-16] MEDS ORDERED: Ativan 2 MG/1 ML VIAL ONE (18:42)
[2021-02-16 19:17] LABS: T4 (Thyroxine) 18.5 ug/dL (5.53-10.96); TSH, 3RD Generation 1.52 mIU/L (0.47-4.68)
[2021-02-16 19:25] LABS: Appearance CLOUDY (CLEAR); Bacteria PACKED /HPF (NEGATIVE); Bilirubin NEGATIVE (NEGATIVE); Blood SMALL Ery/ul (0-5); Glucose >=500 mg/dL (NEGATIVE); Hyaline Casts 0-2 /LPF (0-2); Ketones NEGATIVE (NEGATIVE); Leukocyte Esterase MODERATE (NEGATIVE); Mucus SLIGHT /HPF (NEGATIVE); Nitrite POSITIVE (NEGATIVE); Protein,Urine Dip 30 (Negative); Specific Gravity 1.011 (1.005-1.025); Urobilinogen NEGATIVE mg/dL (0-1); WBC 51-100 /HPF (0-5)
[2021-02-16 19:36] LABS: Amphetamine,Urine NEGATIVE (NEGATIVE); Barbiturate,Urine NEGATIVE (NEGATIVE); Benzodiazepine,Urine NEGATIVE (NEGATIVE); Cocaine,Urine NEGATIVE (NEGATIVE); Methadone,Urine NEGATIVE (NEGATIVE); Opiate,Urine NEGATIVE (NEGATIVE); PCP,Urine NEGATIVE (NEGATIVE); THC,Urine NEGATIVE (NEGATIVE)
[2021-02-16] MEDS ORDERED: ROCEPHIN 1 Gm-D5w 50 ml Bag** 1 G/50 ML IVPB IV STA (19:46)
[2021-02-16] MEDS ORDERED: ROCEPHIN 1 Gm-D5w 50 ml Bag** 1 G/50 ML IVPB IV ONE (19:50)
[2021-02-16 21:38] LABS: INFLUENZA A NEGATIVE (NEGATIVE); INFLUENZA B NEGATIVE (NEGATIVE); RESPIRATORY SYNCTIAL VIRUS NEGATIVE (Negative); SARS-CoV-2 Xpert Express NEGATIVE (NEGATIVE)
[2021-02-16 23:07] VITALS: BP 109/53; PULSE 60; O2SAT 99
--- NOTE | 2021-02-17 08:47 | XRAY ---
Indication: Seizure, uneven pupils, and combative. Stroke. Multiple contiguous axial images obtained through the head without contrast. Comparison: August 31, 2018. Progressive worsening global atrophy and moderate periventricular degenerative micro-ischemia. Old infarcts involving left cerebellum, right temporal lobe, right occipital lobe, and right internal capsule. New finding for old lacunar infarcts involving left basal ganglia and left internal capsule. No acute intracranial hemorrhage, hydrocephalus, or mass effect. Fourth ventricle is midline. Bony calvarium intact. Visualized paranasal sinuses and mastoid air cells are clear. Impression: Progressive aging brain with multifocal old infarcts as detailed above. No acute intracranial abnormalities.
== END 2021-02-16 23:43 | disposition short-term general hospital (02) ==
LOC: ED 17:50
DX: G40.909 Epilepsy, unspecified, not intractable, without status epilepticus (principal); N39.0 Urinary tract infection, site not specified; R41.82 Altered mental status, unspecified; E78.5 Hyperlipidemia, unspecified; E11.8 Type 2 diabetes mellitus with unspecified complications; Z86.73 Personal history of transient ischemic attack (TIA), and cerebral infarction without residual deficits; Z20.828 Contact with and (suspected) exposure to other viral communicable diseases
CPT/HCPCS: 0241U; 36000; 36415; 51702; 70450; 80053; 80307; 81001; 84436; 84443; 84484; 85025; 87077; 87086; 87186; 93005; 93041; 94760; 96374; 96375; 99285; 99291; J0696; J2060; J2250